=== PATIENT | male | born 1965 | race Caucasian/White ===

== ENCOUNTER → 2017-04-19 | Outpatient (CLI) | payer BC, OTHER ==
[2017-04-19 13:11] LABS: BASO % 0.6 %; BASO ABS # 0.04 K/uL (0-0.2); COMPLETE YES; EOS % 3.8 %; HEMATOCRIT 45.5 % (42-52); IG% 0.2 %; LYMPH % 44.1 %; LYMPH ABS # 2.87 K/uL (1.2-3.4); MEAN CELL VOLUME 88.7 fL (80-100); MEAN CORPUSCULAR HEMOGLOBIN 31.2 pg (25-34); MEAN CORPUSCULAR HGB CONC 35.2 g/dl (32-36); MEAN PLATELET VOLUME 10.3 fL (7.4-10.4); MONO % 11.2 %; NEUT % 40.1 %; PLATELET COUNT 216 K/uL (130-400); RED BLOOD COUNT 5.13 M/uL (4.7-6.1); WHITE BLOOD COUNT 6.51 K/uL (4.8-10.8)
[2017-04-19 13:50] LABS: ALT/SGPT 17 U/L (12-78); AST/SGOT 8 U/L (15-37); BLOOD UREA NITROGEN 9 mg/dl (7-18); CALCIUM 9.1 mg/dl (8.5-10.1); CARBON DIOXIDE 27 mmol/L (21-32); CHLORIDE 104 mmol/L (98-107); CREATININE 1.09 mg/dl (0.60-1.40); GLUCOSE 94 mg/dl (70-99); POTASSIUM 3.7 mmol/L (3.5-5.1); SODIUM 139 mmol/L (136-145)
[2017-04-19 13:52] LABS: ALB/GLOB RATIO 1.1 (0.9-2); ALKALINE PHOSPHATASE 67 U/L (45-117)
== END | disposition home or self-care (01) ==
LOC: C.LAB1850 12:28
PROVIDERS: ATTEND Dermatology
DX: L40.9 Psoriasis, unspecified (principal)